=== PATIENT | female | born 1960 | race Caucasian/White ===

== ENCOUNTER 2022-04-10 00:08 | Observation (INO) ==
[2022-04-10] MEDS ORDERED: SODIUM CHLORIDE 0.9% 1,000 ML IV STA (00:25)
[2022-04-10] MEDS ORDERED: PANTOPRAZOLE 40 MG VIAL IV STA (00:25)
[2022-04-10 00:45] LABS: Basophils # 0.1 10*3/uL (0.0-0.2); Basophils % 0.5 % (0.0-0.8); Eosinophils # 0.1 10*3/uL (0.0-0.87); Eosinophils % 0.9 % (0.00-10.9); Hematocrit 33.1 VOL% (35.7-47.0); Hemoglobin 10.7 GM/DL (12.0-16.0); Immature Granulocytes % 0.6 %; Immature Granulocytes Absolute 0.09 #; Lymphocytes # 3.5 10*3/uL (1.4-4.0); Lymphocytes % 23.4 % (21.3-54.2); Mean Corpuscular HGB Conc 32.3 GM/DL (32-36); Mean Corpuscular Volume 99.7 FL (87-102); Mean Platelet Volume 12.2 FL (9.6-12.0); Monocytes # 0.8 10*3/uL (0.11-0.8); Monocytes % 5.2 % (1.7-12.7); Neutrophils % 69.4 % (38.7-73.9); Platelet Count 260 T/CUMM (130-400); Red Blood Count 3.32 MC/CUMM (3.8-5.5); Red Cell Distribution Width 17.9 % (9.3-17.3); White Blood Count 14.9 T/CUMM (4-12)
[2022-04-10 00:54] LABS: PT Patient Result 10.8 SECS (10.1-12.1)
[2022-04-10 01:02] LABS: Albumin 2.8 G/DL (3.4-5.0); Bilirubin,Total 0.4 MG/DL (0.20-1.00); Calcium 8.2 MG/DL (8.5-10.1); Osmolality,Calculated 294.4 MOS/KG (273-304); Potassium 4.1 MMOL/L (3.5-5.1); Total Protein 5.7 G/DL (6.4-8.2)
[2022-04-10] MEDS ORDERED: SODIUM CHLORIDE 0.9% 1,000 ML IV PRN (01:09)
[2022-04-10] MEDS ORDERED: GLUCAGON 1 MG VIAL IM PRN (02:28)
[2022-04-10] MEDS ORDERED: DEXTROSE 10% 250 ML BAG IV PRN (02:28)
[2022-04-10] MEDS ORDERED: ONDANSETRON 4 MG/2 ML VIAL IV PRN (02:28)
[2022-04-10] MEDS ORDERED: NICOTINE 21 MG/24 HR PATCH TRANSDERM PRN (02:47)
[2022-04-10] MEDS: PANTOPRAZOLE INJ 200 MG in SODIUM CHLORIDE 0.9% 250 ML IV SCH (03:46)
[2022-04-10 07:04] LABS: Hematocrit 32.4 VOL% (35.7-47.0); Hemoglobin 10.6 GM/DL (12.0-16.0)
[2022-04-10] MEDS: ACETAMINOPHEN 325 MG TABLET PO PRN (10:38)
[2022-04-10] MEDS ORDERED: LACTATED RINGERS 1,000 ML IV SCH (11:00)
[2022-04-10] MEDS ORDERED: LIDOCAINE 2% 5 ML VIAL ONE (12:29)
[2022-04-10] MEDS ORDERED: propofoL 200 MG/20 ML VIAL IV ONE ×2 (12:29→12:42)
[2022-04-10 13:16] LABS: Hematocrit 31.3 VOL% (35.7-47.0); Hemoglobin 10.3 GM/DL (12.0-16.0)
[2022-04-10 18:51] LABS: Hematocrit 29.4 VOL% (35.7-47.0); Hemoglobin 9.7 GM/DL (12.0-16.0)
[2022-04-11 01:23] LABS: Basophils # 0.1 10*3/uL (0.0-0.2); Basophils % 0.9 % (0.0-0.8); Eosinophils # 0.2 10*3/uL (0.0-0.87); Eosinophils % 2.2 % (0.00-10.9); Hematocrit 27.2 VOL% (35.7-47.0); Hemoglobin 8.9 GM/DL (12.0-16.0); Immature Granulocytes % 0.5 %; Immature Granulocytes Absolute 0.05 #; Lymphocytes % 32.3 % (21.3-54.2); Mean Corpuscular HGB Conc 32.7 GM/DL (32-36); Mean Corpuscular Volume 98.9 FL (87-102); Mean Platelet Volume 12.2 FL (9.6-12.0); Monocytes # 0.6 10*3/uL (0.11-0.8); Monocytes % 5.9 % (1.7-12.7); Neutrophils % 58.2 % (38.7-73.9); Platelet Count 193 T/CUMM (130-400); Red Blood Count 2.75 MC/CUMM (3.8-5.5); Red Cell Distribution Width 18.4 % (9.3-17.3); White Blood Count 9.4 T/CUMM (4-12)
[2022-04-11 01:44] LABS: Albumin 2.4 G/DL (3.4-5.0); Bilirubin,Total 0.4 MG/DL (0.20-1.00); Calcium 7.9 MG/DL (8.5-10.1); Osmolality,Calculated 281.4 MOS/KG (273-304); Potassium 3.7 MMOL/L (3.5-5.1); Total Protein 5.1 G/DL (6.4-8.2)
[2022-04-11] MEDS: PANTOPRAZOLE INJ 200 MG in SODIUM CHLORIDE 0.9% 250 ML IV SCH (04:36)
[2022-04-11] MEDS: ACETAMINOPHEN 325 MG TABLET PO PRN (10:41)
[2022-04-11 12:01] VITALS: BP 150/79
== END 2022-04-11 12:45 | disposition home or self-care (01) ==
LOC: N.ED 00:08 → INTOOBSV 02:13 → N.EDINP 02:13 → N.5E 02:58
PROVIDERS: ADMIT Emergency Medicine; ATTEND Emergency Medicine